=== PATIENT | male | born 1950 | race Caucasian/White ===

== ENCOUNTER 2020-04-22 11:56 | Observation (INO) ==
[2020-04-22] MEDS ORDERED: 0.9 % Sodium Chloride 1,000 ML IVC ONE ×2 (12:10→18:54)
[2020-04-22 12:39] LABS: Basophils % 0.5 %; Immature Granulocytes % 0.3 % (0-4); Mean Platelet Volume 11.4 fL (9.4-12.4); Red Cell Distribution Width 11.9 % (11.5-14.5)
[2020-04-22 12:40] LABS: Eosinophils % 0.3 %; Hemoglobin 14.6 g/dL (12.9-16.9); Immature Platelets 7.1 % (1.1-6.1); Lymphocytes # 1.1 K/mcL (0.6-4.6); Lymphocytes % 14.5 %; Mean Corpuscular HGB Conc 31.7 g/dL (31.6-35.5); Mean Corpuscular Volume 94.7 fL (83.0-100.0); Monocytes # 0.4 K/mcL (0.0-1.3); Monocytes % 5.2 %; Neutrophils # 5.9 K/mcL (1.6-8.9); Platelet Count 129 K/mcL (140-400); Red Blood Count 4.86 M/mcL (4.19-5.50); Segmented Neutrophils % 79.2 %; White Blood Count 7.5 K/mcL (4.3-11.1)
[2020-04-22 12:45] LABS: INR 1.1
[2020-04-22] MEDS ORDERED: *HR* LORazepam 2 MG/ML VIAL IVP ONE (12:56)
[2020-04-22 12:59] LABS: Alanine Aminotransferase 9 Units/L (7-52); Albumin 4.6 g/dL (3.5-5.7); Albumin/Globulin Ratio 2.4 (1.1-2.2); Alkaline Phosphatase 47 Units/L (34-104); Aspartate Amino Transferase 14 Units/L (13-39); BUN/Creatinine Ratio 19 (6-26); Bilirubin,Total 0.4 mg/dL (0.3-1.0); Blood Urea Nitrogen 13 mg/dL (8-23); Calcium 9.7 mg/dL (8.6-10.3); Carbon Dioxide 29 mEq/L (23-29); Chloride 102 mEq/L (98-107); Globulin 1.9 g/dL (2.4-3.5); Glucose 151 mg/dL (70-105); Magnesium 2.1 mg/dL (1.6-2.6); Osmolality,Calculated 287 (280-300); Phosphorous 2.4 mg/dL (2.7-4.5); Potassium 3.7 mEq/L (3.5-5.1); Sodium 137 mEq/L (136-145); Total Protein 6.5 g/dL (6.4-8.9); Troponin I < 0.03 ng/mL (< 0.04); eGFR For African Americans > 60 (> 60); eGFR For Non-African Americans > 60 (> 60)
[2020-04-22 13:35] LABS: Bilirubin,Urine Negative (Negative); Blood,Urine Negative (Negative); Clarity,Urine Clear (Clear); Color,Urine Colorless (Yellow); Glucose,Urine (UA) Normal (Normal); Ketones,Urine Negative (Negative); Leukocyte Esterase,Urine Negative (Negative); Nitrite,Urine Negative (Negative); Protein,Urine Negative (Neg-Trace); Specific Gravity,Urine 1.008 (1.010-1.025); Urobilinogen,Urine Normal (Normal)
[2020-04-22] MEDS ORDERED: Morphine Sulfate 2 MG/ML SYRINGE IVP STA (16:16)
[2020-04-22] MEDS ORDERED: Ondansetron 4 MG/2 ML VIAL IVP PRN (16:32)
[2020-04-22] MEDS ORDERED: Naloxone 0.4 MG/ML INJ IVP PRN (16:32)
[2020-04-22 17:52] LABS: Creatine Kinase 35 Units/L (30-223)
[2020-04-22] MEDS ORDERED: Perflutren Lipid Microsphere 1.3 ML in 0.9 % Sodium Chloride 8.7 ML IVP PRN (17:53)
[2020-04-22] MEDS: Nicotine 7 MG PATCH.TD24 TD SCH (17:55)
[2020-04-22] MEDS: *HR* Heparin 5,000 UNIT/ML VIAL SQ SCH (18:22)
[2020-04-22] MEDS: 0.9 % Sodium Chloride 1,000 ML IVC SCH ×2 (18:42→19:56)
[2020-04-23] MEDS: *HR* OxyCODONE/APAP 5/325 TABLET PO PRN ×2 (03:36→10:05)
[2020-04-23] MEDS: 0.9 % Sodium Chloride 1,000 ML IVC SCH ×2 (03:36→09:58)
[2020-04-23] MEDS: *HR* Heparin 5,000 UNIT/ML VIAL SQ SCH (05:41)
[2020-04-23 07:31] LABS: Immature Granulocytes % 0.4 % (0-4); Mean Corpuscular Volume 95.2 fL (83.0-100.0); Red Cell Distribution Width 12.1 % (11.5-14.5)
[2020-04-23 07:33] LABS: Basophils # 0.1 K/mcL (0.0-0.2); Basophils % 1.1 %; Eosinophils # 0.1 K/mcL (0.0-0.6); Eosinophils % 1.2 %; Hematocrit 39.8 % (37.5-50.1); Hemoglobin 12.5 g/dL (12.9-16.9); Immature Platelets 7.6 % (1.1-6.1); Lymphocytes # 1.6 K/mcL (0.6-4.6); Lymphocytes % 27.7 %; Mean Corpuscular HGB Conc 31.4 g/dL (31.6-35.5); Mean Corpuscular Hemoglobin 29.9 pg (28.0-33.3); Mean Platelet Volume 11.7 fL (9.4-12.4); Monocytes # 0.3 K/mcL (0.0-1.3); Monocytes % 5.6 %; Neutrophils # 3.7 K/mcL (1.6-8.9); Platelet Count 108 K/mcL (140-400); Red Blood Count 4.18 M/mcL (4.19-5.50); White Blood Count 5.7 K/mcL (4.3-11.1)
[2020-04-23 07:53] LABS: BUN/Creatinine Ratio 15 (6-26); Blood Urea Nitrogen 8 mg/dL (8-23); Calcium 8.4 mg/dL (8.6-10.3); Carbon Dioxide 26 mEq/L (23-29); Chloride 110 mEq/L (98-107); Glucose 82 mg/dL (70-105); Magnesium 1.7 mg/dL (1.6-2.6); Osmolality,Calculated 289 (280-300); Phosphorous 2.7 mg/dL (2.7-4.5); Sodium 141 mEq/L (136-145); eGFR For African Americans > 60 (> 60); eGFR For Non-African Americans > 60 (> 60)
[2020-04-23] MEDS ORDERED: Bicalutamide 50 MG TABLET PO SCH (09:00)
[2020-04-23] MEDS: Nicotine 7 MG PATCH.TD24 TD SCH (09:57)
[2020-04-23 11:27] VITALS: BP 134/64
== END 2020-04-23 13:33 | disposition home or self-care (01) ==
LOC: 3BNU 11:56 → EMEROOARM 11:56 → SUATTDRO 17:16 → 3BNU 18:07
PROVIDERS: ADMIT Internal Medicine; ATTEND Internal Medicine